=== PATIENT | female | born 1955 ===

== ENCOUNTER 2019-08-06 13:50 | Outpatient (CLI) | payer OTHER | END 2019-08-06 13:52 | disposition home or self-care (01) | LOC: MAMO-SONO 13:50 | DX: Z12.31 Encounter for screening mammogram for malignant neoplasm of breast (principal); Z87.898 Personal history of other specified conditions; E04.1 Nontoxic single thyroid nodule; N64.4 Mastodynia; N61.0 Mastitis without abscess ==